=== PATIENT | female | born 1955 ===

== ENCOUNTER → 2023-07-03 | Outpatient (CLI) | payer MEDICARE, MEDICAID, SELFPAY ==
--- NOTE | 2023-07-03 | DI.RAD.S_ITS ---
Bone Density Report Name: ALEJANDRA CERVANTES Age: 68 Sex: Female Ethnicity: White Date of : 1955 Indication: postmenopausal; screening for osteoporosis; Referring Provider: RADHA SIDDIQUI Study: Bone densitometry was performed. Exam Date: July 03, 2023 Accession number: [id number] Bone Density: Region BMD T-score Z-score Classification AP Spine(L1, L3, L4) 0.691 -3.3 -1.1 Osteoporosis Femoral Neck (Left) 0.552 -2.7 -0.9 Osteoporosis Total Hip (Left) 0.732 -1.7 -0.2 Osteopenia Femoral Neck (Right) 0.557 -2.6 -0.8 Osteoporosis Total Hip (Right) 0.727 -1.8 -0.2 Osteopenia Total Hip Mean 0.729 -1.8 -0.2 Osteopenia World Health Organization criteria for BMD impression classify patients as: Normal (T-score at or above -1.0), Osteopenia (T-score between -1.0 and -2.5), or Osteoporosis (T-score at or below -2.5). Impression: The patient has osteoporosis, based on the Total Spine T-score. Discussion: INCREASED RISK OF FRACTURE. BONE DENSITY IS UNDESIRABLY LOW AT ONE OR MORE SKELETAL SITES, CONSISTENT WITH POSTMENOPAUSAL OSTEOPOROSIS. This patient's lowest T-score meets the World Health Organization's (WHO) criteria for osteoporosis at one or more sites (T-score -2.5 or below). In untreated patients, the risk of osteoporotic fracture increases approximately two-fold for each 1.0 SD decrease in T-score. Low bone density is not the only risk factor for fracture; also consider factors such as patient's age, frailty or poor health, risk of falling, risk of injury, previous osteoporotic fracture, family history of osteoporosis, cigarette smoking, low body weight, etc. Not everyone with low bone mineral density has osteoporosis; osteomalacia and other metabolic bone disorders should also be considered. Patients who have osteoporosis should be evaluated for specific diseases and conditions (secondary causes) that may cause or contribute to bone loss. The [place] [employer]ocr[employer] (AACE) and National Osteoporosis Foundation (NOF) recommend pharmacologic intervention for all postmenopausal women whose T-score is in this range. The patient should follow a healthful lifestyle (good nutrition with adequate calcium and vitamin D, and appropriate weight-bearing exercise). Follow-Up: Consider a repeat BMD and Vertebral Fracture Assessment (VFA) exam in 2 years or sooner if medically necessary, to reassess this patient's status. Reported by: JOSE CRUZ HIGGINS M.D. on 07/03/2023 11:30:00 AM.
--- NOTE | 2023-07-03 | DI.MG.S_ITS ---
BILATERAL DIGITAL SCREENING MAMMOGRAM 3D/2D WITH CAD: 07/03/2023 CLINICAL: Routine screening. Baseline exam. No prior exams were available for comparison. There are scattered areas of fibroglandular density in both breasts (category b / 25%-50% glandular tissue). Current study was also evaluated with a Computer Aided Detection (CAD) system. No significant masses, calcifications, or other findings are seen in either breast. IMPRESSION: NEGATIVE There is no mammographic evidence of malignancy. A 1 year screening mammogram is recommended. Based on the Tyrer Cuzick model (a risk assessment model) the patient's lifetime risk is 3.2% and her 10 year risk is 2.0%. According to the ACR, ACS, and NCCN guidelines, an annual breast MRI exam along with mammogram is recommended if the patient's lifetime risk is 20% or greater. This exam was interpreted at Station ID: [id number]. NOTE: For mammograms, a report in lay terms will be sent to the patient. Approximately 15% of breast malignancies will not be visualized mammographically. In the management of a palpable breast mass, a negative mammogram must not discourage biopsy of a clinically suspicious lesion. Electronically Signed By: Lizy Martinez M.D., PH.D sherine/tressa:07/03/2023 18:25:08 letter sent: Normal Exam ACR BI-RADS Category 1: Negative [id number]
--- NOTE | 2023-07-03 | DI.US.S_ITS ---
PROCEDURE: US THYROID INDICATIONS: NODULES TECHNIQUE: Real-time scanning was performed of the thyroid gland, with image documentation. COMPARISON: None. FINDINGS: Right: Thyroid lobe measures 5.0 x 2.4 x 1.7 cm, and is homogeneous in echotexture. Left: Thyroid lobe measures 7.6 x 4.0 x 5.1 cm, and is homogenous in echotexture. Isthmus: For mm thick. Nodule number: 1 Location: Right superior Size: 1.3 x 1.5 x 0.9 cm. Composition: Spongiform ACR TI-RADS category: 2 Nodule number: 2 Location: Right inferior pole Size: 1.4 x 1.2 x 1.1 cm. Previously 3.9 x 2.9 x 2.7 cm. Composition: Solid Echogenicity: Hypoechoic Shape: wider than tall. Margins: Smooth Echogenic foci: Colloid Total points: 4 ACR TI-RADS category: Moderate suspicion category. Nodule number: 3 Location: Right midpole Size: 0.8 x 0.7 x 0.9 cm cm. Composition: Solid Echogenicity: Hypoechoic Shape: wider than tall. Margins: Smooth Echogenic foci: None Total points: 4 ACR TI-RADS category: Moderate suspicion category. Nodule number: 4 Location: Left superior pole Size: 1.0 x 1.1 x 1.1 cm, previously 1.7 x 1.7 x 1.1 cm. Composition: Predominantly cystic Echogenicity: Anechoic Shape: wider than tall. Margins: Smooth Echogenic foci: Peripheral calcifications Total points: 4 ACR TI-RADS category: Moderate suspicion category. Nodule number: 5 Location: Left midpole Size: 4.8 x 5.7 x 3.6 cm. Previously 4.6 x 3.9 x 3.2 cm. Composition: Predominantly cystic Echogenicity: Anechoic with hypoechoic components Shape: wider than tall. Margins: Smooth Echogenic foci: None Total points: 3 ACR TI-RADS category: Mild suspicion category. Nodule number: 6 Location: Left medial/inferior pole Size: 2.4 x 1.9 x 1.9 cm Composition: Solid Echogenicity: Hypoechoic Shape: wider than tall. Margins: Smooth Echogenic foci: None Total points: 4 ACR TI-RADS category: Moderate suspicion category. IMPRESSION: Multiple thyroid nodules, as above. Recommend FNA of nodule 6. The dominant , predominantly cystic mass (nodule 5) has demonstrated interval growth, and meet size criteria for biopsy although the solid component will be challenging to target. Interval decrease in size nodule 2. While this meets size criteria for biopsy, biopsies not entirely indicated given the interval decrease in size. ACR TI-RADS definitions and recommendations: TI-RADS 1 (benign): 0 points. FNA not needed. TI-RADS 2 (not suspicious): 2 points. FNA not needed. TI-RADS 3 (mildly suspicious): 3 points. * FNA if 2.5 cm or larger, follow up if 1.5 cm or larger (at 1, 3, and 5 years). TI-RADS 4 (moderately suspicious): 4-6 points. * FNA if 1.5 cm or larger, follow up if 1 cm or larger (at 1, 2, 3, and 5 years). TI-RADS 5 (highly suspicious): 7 points or more. * FNA if 1 cm or larger, follow up if 0.5 cm or larger (every year for 5 years). Dictated by: Alycia Soriano M.D. on 07/05/2023 at 18:50 Approved by: Aly Tatum M.D. on 07/06/2023 at 13:04
== END ==
PROVIDERS: PCP Registered Nurse; Referring Provider Registered Nurse; Visit Provider Registered Nurse
DX: Z12.31 Encounter for screening mammogram for malignant neoplasm of breast (principal); E04.2 Nontoxic multinodular goiter; M81.0 Age-related osteoporosis without current pathological fracture; Z78.0 Asymptomatic menopausal state
CPT/HCPCS: 76536; 77063; 77067; 77080